=== PATIENT | male | born 1955 | race Caucasian/White ===

== ENCOUNTER 2017-05-29 12:25 | Day surgery (SDC) | payer OTHER ==
[2017-05-29] MEDS ORDERED: LIDOCAINE 2% (SDV) 5 ML INJ (14:26)
[2017-05-29] MEDS ORDERED: PROPOFOL 60 ML (14:26)
== END 2017-05-29 16:26 | disposition home or self-care (01) ==
LOC: GIL 12:25
DX: Z12.11 Encounter for screening for malignant neoplasm of colon (principal); K57.90 Diverticulosis of intestine, part unspecified, without perforation or abscess without bleeding; K64.8 Other hemorrhoids; I10 Essential (primary) hypertension; E78.5 Hyperlipidemia, unspecified; E66.9 Obesity, unspecified; Z68.28 Body mass index [BMI] 28.0-28.9, adult
CPT/HCPCS: 45378

== ENCOUNTER 2018-01-29 07:54 | Day surgery (SDC) | payer OTHER ==
[~2018-01-29 07:54] MED LIST: CEFAZOLIN 1 GM INJ; CEFAZOLIN 2 GM/50 ML (PMX) 50 ML IVPB; LACTATED RINGER'S 1,000 ML IV*
[2018-01-29] MEDS ORDERED: PROPOFOL 20 ML (09:10)
[2018-01-29] MEDS ORDERED: ROCURONIUM 50 MG INJ (09:10)
[2018-01-29] MEDS ORDERED: FENTAnyl 50 MCG/ML VIAL ×2 (09:10→13:59)
[2018-01-29] MEDS ORDERED: NEOSTIGMINE 3 MG/3 ML SYRINGE (09:10)
[2018-01-29] MEDS ORDERED: LIDOCAINE 2% (SDV) 5 ML INJ (09:10)
[2018-01-29] MEDS ORDERED: MIDAZOLAM 1 MG/ML 2 ML INJ (09:10)
[2018-01-29] MEDS ORDERED: GLYCOPYRROLATE 0.4 MG INJ (09:10)
[2018-01-29] MEDS ORDERED: ONDANSETRON 4 MG INJ (09:11)
[2018-01-29] MEDS ORDERED: DEXAMETHASONE 4 MG/ML 1 ML INJ (09:11)
[2018-01-29] MEDS ORDERED: FLUMAZENIL 0.5 MG INJ (11:02)
[2018-01-29] MEDS ORDERED: SUCCINYLCHOLINE CHLORIDE 100 MG/5 ML SYG IV (11:49)
[2018-01-29] MEDS: BUPIVACAINE 0.25% (MPF) 30 ML INJ (12:43)
[2018-01-29] MEDS ORDERED: hydrALAzine 20 MG INJ (13:04)
[2018-01-29] MEDS: FENTAnyl 50 MCG/ML VIAL IV (14:19)
[2018-01-29] MEDS: HYDROmorphONE 1 MG/5 ML IV SYRINGE IV (14:23)
[2018-01-29] MEDS ORDERED: morphine (1 MG/ML) 10ML SYRINGE IV ×2 (14:30)
[2018-01-29] MEDS ORDERED: MEPERIDINE 25 MG INJ IV (14:30)
[2018-01-29] MEDS ORDERED: METOCLOPRAMIDE 10 MG INJ IV (14:30)
[2018-01-29] MEDS ORDERED: LABETALOL HCL 20MG INJ IV (14:30)
[2018-01-29] MEDS ORDERED: ONDANSETRON 4 MG INJ IV (14:30)
[2018-01-29] MEDS ORDERED: hydrALAzine 20 MG INJ IV (14:30)
[2018-01-29] MEDS ORDERED: OXYCODONE/ACETAMINOPHEN (5/325) TAB PO ×2 (14:30)
[2018-01-29] MEDS ORDERED: HYDROmorphONE 1 MG/5 ML IV SYRINGE IV ×2 (14:30)
[2018-01-29] MEDS ORDERED: FENTAnyl 50 MCG/ML VIAL IV ×2 (14:30)
[2018-01-29] MEDS ORDERED: DIPHENHYDRAMINE 50 MG INJ IV (14:30)
== END 2018-01-29 15:26 | disposition home or self-care (01) ==
LOC: SDS 07:54
DX: M72.0 Palmar fascial fibromatosis [Dupuytren] (principal)
CPT/HCPCS: 26123